=== PATIENT | male | born 1960 | race African-American/Black ===

== ENCOUNTER 2018-04-07 00:21 | Observation (INO) | payer MEDICARE ==
[2018-04-07 00:40] LABS: #Basophils 0.1 thou/uL (0.0-0.2); #Eosinphils 0.4 thou/uL (0.0-0.7); #Lymphocytes 3.5 thou/uL (1.20-3.40); #Monocytes 0.6 thou/uL (0.11-0.59); #Neutrophils 2.3 thou/uL (1.40-6.50); %Basophils 1.4 % (0.0-1.0); %Lymphocytes 49.9 % (21.0-51.0); %Neutrophils 33.7 % (42.0-75.0); Hemoglobin 14.3 g/dL (14.0-18.0); Mean Corpuscular Hemoglobin 28.2 pg (27.0-31.0); Mean Corpuscular Volume 85.5 fL (78.0-98.0); Mean Platelet Volume 7.6 fL (7.4-10.4); Platelet Count 277 thou/uL (130-400); RBC Distribution Width 12.6 % (11.5-14.5); Red Blood Cell (RBC) Count 5.07 mill/uL (4.70-6.10); White Blood Cell (WBC) Count 6.9 thou/uL (4.8-10.8)
[2018-04-07] MEDS ORDERED: Nitroglycerin 0.4 MG TAB (25 Tab Bottle) ONE (00:41)
[2018-04-07] MEDS ORDERED: Aspirin 325 MG TAB ONE (00:41)
[2018-04-07 01:02] LABS: ALT (SGPT) 23 U/L (8-55); AST (SGOT) 24 U/L (5-34); Albumin 4.2 g/dL (3.5-5.0); Alkaline Phosphatase 68 U/L (40-150); Anion Gap 12 mmol/L (10-20); BUN (Urea Nitrogen) 15 mg/dL (8.4-25.7); Bilirubin, Total 0.3 mg/dL (0.2-1.2); CK (CPK) 450 U/L (30-200); Calc. Creatinine Clearance 0 mL/min (70-130); Calcium 9.6 mg/dL (7.8-10.44); Carbon Dioxide 25 mmol/L (22-29); Chloride 106 mmol/L (98-107); Estimated GFR-MDRD 64; Globulin 3.1 g/dL (2.4-3.5); Glucose 126 mg/dL (70-105); Lipase 50 U/L (8-78); Potassium 3.6 mmol/L (3.5-5.1); Protein, Total 7.3 g/dL (6.0-8.3); Sodium 139 mmol/L (136-145)
[2018-04-07] MEDS ORDERED: Acetaminophen 325 MG TAB PO PRN (04:02)
[2018-04-07 04:14] VITALS: BMI 31.9
[2018-04-07] MEDS ORDERED: Dextrose 5% in Water 1,000 ML IV PRN (04:53)
[2018-04-07] MEDS ORDERED: Dextrose 50% Abboject 50 ML SYRINGE SLOW IVP PRN (04:53)
[2018-04-07] MEDS ORDERED: HumaLOG 300 UNITS/3 ML VIAL SC PRN (04:53)
[2018-04-07 05:52] LABS: Cardiac Risk 3.6 (Less than 4.5)
[2018-04-07 05:56] LABS: Troponin I Less than 0.010 ng/mL (< 0.028)
[2018-04-07] MEDS ORDERED: metFORMIN 500 MG TAB PO SCH (08:00)
--- NOTE | 2018-04-07 08:24 | RAD ---
PORTABLE UPRIGHT FRONTAL CHEST RADIOGRAPH: Date: 04-07-18 Comparison: 07-12-15 History: Chest pain. FINDINGS: Lungs are clear. Heart and mediastinal contours are stable. IMPRESSION: No acute findings. POS: [facility]
[2018-04-07] MEDS ORDERED: Aspirin 325 MG TAB PO SCH (09:00)
[2018-04-07] MEDS ORDERED: Amlodipine 10 MG TAB PO SCH (09:00)
[2018-04-07] MEDS ORDERED: ADENOSINE 60 MG/20 ML VIAL ONE (09:00)
--- NOTE | 2018-04-07 11:44 | HP ---
CHIEF COMPLAINT: Chest pain. HISTORY OF PRESENT ILLNESS: This patient is a 58-year-old male with a history of chest pain, for which he was admitted to this facility in 2015. At that time, the patient underwent a stress test, which was unremarkable. The patient was in his usual state of generally good health until the day of admission when he presented to the emergency department complaining of chest pain that started about 30 minutes prior to his arrival. He described it as right-sided parasternal pain, achy in nature, and 3/10 at its crescendo. In the emergency department, he received nitroglycerin and he is unsure if that is what actually resolved the pain or it resolved spontaneously, but it did go away and he is completely pain free now. He had no associated shortness of breath, lightheadedness, nausea, vomiting, or radiation of the pain. It was not positional and he did not take anything otherwise on his own to address this. He reports this pain is different from the pain he has had in the past, but it is somewhat similar to gas pain he has experienced in the past. Functional status is normal. REVIEW OF SYSTEMS: The patient has had no changes in his weight or sleep. 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 He denies problems with swallowing, constipation, diarrhea, palpitations, or edema. He has no cough, shortness of breath, or wheezing. Denies dysuria, frequency, nocturia, or incontinence. Denies rash or other skin lesions, numbness, weakness, or tingling. Denies anxiety, depression , polyuria or polydipsia. All other systems were reviewed and pertinent positives and negatives mentioned in the history of present illness. PAST MEDICAL HISTORY: Notable for hypertension, hyperlipidemia, and diabetes. PAST SURGICAL HISTORY: He has had surgery on his left hip and right knee, had an appendectomy and a subcutaneous cyst removed from his left anterior chest. FAMILY HISTORY: Both his parents had diabetes, hypertension, and stroke. SOCIAL HISTORY: The patient is a nonsmoker, nondrinker, and nondrug user. He is . He is full code, and his would be his surrogate decision maker should that become necessary. ALLERGIES: NONE. CURRENT MEDICATIONS: 1. Multivitamin one p.o. daily. 2. Metformin 500 mg p.o. daily. 3. Protonix 40 mg daily. 4. Norvasc 5 mg daily. PHYSICAL EXAMINATION: VITAL SIGNS: Temperature 98.2, pulse 64, respirations 16, and O2 saturation 99 % on room air. GENERAL APPEARANCE: Age-appropriate male. He is in no distress. He is awake, alert, oriented, pleasant, and cooperative. HEART: Regular rate and rhythm without murmurs, gallops, or rubs. LUNGS: Clear to auscultation bilaterally with good chest wall expansion and air exchange. ABDOMEN: Soft, nontender, and nondistended. Positive bowel sounds. No masses. No organomegaly. EXTREMITIES: No cyanosis, clubbing, or edema. SKIN: Normal with normal turgor. No skin lesions. NEUROLOGIC/PSYCHIATRIC: The patient has no neurologic deficits. He has normal affect and behavior. LABORATORY DATA: White count 6.9, hemoglobin 14.3, and platelets 277. Sodium 139, potassium 3.6, chloride 106, CO2 is 25, BUN 15, creatinine is 1.37, glucose 126 , ALT is 23, AST 24, alkaline phosphatase 68. CK 450, troponin 0.010. Lipase 50. Flu screen negative. Chest x-ray, by my evaluation, shows no acute cardiopulmonary processes. EKG, sinus rhythm at 64 beats per minute with some premature atrial complexes. IMPRESSION AND PLAN: 1. Chest pain. The patient with risk factors for coronary artery disease including diabetes, hypertension, hyperlipidemia. The patient is admitted and he is placed on observation. He will remain on telemetry. We will get serial troponins. If these are negative, the patient probably would benefit from stress testing again at this time. We will keep him n.p.o. for that. We will leave it to the daytime provider to follow up on the troponins and determine whether the patient needs to stay inpatient for this test or if he can follow up and do this as an outpatient with his PCP 2. Diabetes mellitus. We will continue Accu-Cheks and continue with his metformin, sliding scale as needed. 3. Hypertension. Continue with his usual home amlodipine. 4. History of hyperlipidemia, not currently on any medications, will likely need a fasting lipid panel at some point. Job ID: [id number] [facility]
[2018-04-07 12:08] LABS: Troponin I Less than 0.010 ng/mL (< 0.028)
--- NOTE | 2018-04-07 13:20 | NM ---
CARDIAC SPECT WITH EF AND WALL MOTION: History: 58-year-old male with history of chest pain, hypotension, diabetes mellitus, and dyslipidemia. Patient was injected with 29.0 mCi Technetium 99M Sestamibi intravenously for stress images and 9.0 m Ci Technetium 99M Sestamibi intravenously for resting images. FINDINGS: Multiple SPECT images in the short axis, vertical long axis, and horizontal long axis demonstrates no scan evidence for infarct or ischemia. TID: 1.19 LHR: 0.41 EDV: 126 ml Ejection fraction: 56% MYOCARDIAL PERFUSION WALL MOTION: Wall motion is normal. IMPRESSION: No scan evidence for infarct or ischemia. EDV 126 ml. POS: [facility]
[2018-04-07 16:13] VITALS: BP 133/86; TEMP 98.5
--- NOTE | 2018-04-08 05:41 | DIS ---
DATE OF ADMISSION: 04/07/2018 DATE OF DISCHARGE: 04/07/2018 DISCHARGE DIAGNOSES: 1. Chest pain, noncardiac, likely musculoskeletal. 2. Hypertension, stable. 3. Hyperlipidemia. 4. Diabetes mellitus type 2, stable. CONSULTATIONS: None. PERTINENT LAB AND X-RAY FINDINGS: Creatinine 1.37, estimated GFR of 64. Total CK 450. Troponin I negative x3. Total cholesterol 171, triglycerides 76, HDL 48, LDL 108, lipase 50. CBC within normal limits. Influenza A and B antigen on 04/07/2018, negative. Portable chest x-ray dated 04/07/2018, showed no acute cardiopulmonary process. Cardiolite stress testing dated 04/07/2018, showed no evidence of reversible or fixed ischemia with calculated ejection fraction of 56%. HOSPITAL COURSE: The patient was observed on the telemetry unit after initially presenting with chest pain with multiple risk factors to include hypertension, hyperlipidemia, and diabetes mellitus type 2. The patient underwent serial cardiac enzymes which were negative x3. Proceeding to Cardiolite stress testing showing no evidence of reversible or fixed ischemia with calculated ejection fraction of 56%. Telemetry monitoring showed a sinus mechanism without evidence of acute arrhythmia or dysrhythmia. Vital signs remained stable, and screening metabolic survey was essentially unremarkable. The patient's presentation likely musculoskeletal in origin. I have examined the patient at the time of discharge and discussed followup instructions. The patient overall clinically stable and ready for discharge on 04/07/2018. DISCHARGE MEDICATIONS: 1. Amlodipine 5 mg p.o. daily. 2. Metformin 500 mg p.o. daily. 3. Multivitamin one tab p.o. daily. 4. Protonix 40 mg p.o. daily. FOLLOWUP: The patient may follow up with his primary care provider, Dr. Gloria Olsen, within 7 days of discharge. CONDITION ON DISCHARGE: Stable. ACTIVITY: Ad-jay. DIET: ADA. CODE STATUS: Full. DISPOSITION: Home, 04/07/2018. Job ID: [id number]
--- NOTE | 2018-04-13 12:47 | EKG ---
Test Reason : CP Blood Pressure : / mmHG Vent. Rate : 064 BPM Atrial Rate : 078 BPM P-R Int : 178 ms QRS Dur : 086 ms QT Int : 396 ms P-R-T Axes : 056 036 024 degrees QTc Int : 408 ms Sinus rhythm with Premature atrial complexes in a pattern of bigeminy Moderate voltage criteria for LVH, may be normal variant Borderline ECG Confirmed by LYNNETTE AYON DO ([id number]), pictures editor GANESH MCNALLY ([id number]) on 04/13/2018 12:47:22 PM Referred By: Confirmed By:LYNNETTE AYON DO
== END 2018-04-07 16:20 | disposition home or self-care (01) ==
LOC: ERS 00:21 → 2NO 02:37
PROVIDERS: ADMIT Internal Medicine; ATTEND Internal Medicine
DX: R07.89 Other chest pain (principal); I10 Essential (primary) hypertension; E78.5 Hyperlipidemia, unspecified; E11.9 Type 2 diabetes mellitus without complications; Z79.84 Long term (current) use of oral hypoglycemic drugs; Z79.899 Other long term (current) drug therapy
CPT/HCPCS: 71045; 78452; 80053; 80061; 82550; 82962; 83690; 84484 ×2; 85025; 87804 ×2; 93005; 93017; 96360; 99285; A9500; G0378 ×2; 36415; 36416; J0153